=== PATIENT | male | born 1965 | race Caucasian/White ===

== ENCOUNTER 2020-09-30 00:54 | Outpatient (CLI) | payer OTHER, SELFPAY ==
[2020-09-30 19:31] LABS: SARS-CoV-2 RNA PCR Negative
== END 2020-09-30 00:55 | disposition home or self-care (01) ==
LOC: ANHCOVIDDT 00:54
PROVIDERS: Visit Provider Otolaryngology
DX: Z01.818 Encounter for other preprocedural examination (principal); Z20.828 Contact with and (suspected) exposure to other viral communicable diseases
CPT/HCPCS: 87635; C9803; U0003

== ENCOUNTER 2020-10-03 00:01 | Day surgery (SDC) | payer OTHER, SELFPAY ==
[2020-09-25 13:19] VITALS: BMI 25.1
--- NOTE | 2020-10-02 10:02 | WPDANESEPPF ---
Anes - Initial Pre Proc Eval Procedure: Operation Date: 10/03/20 08:45 Proposed Procedures p Right Tympanoplasty - Jas Martinez MD Date/Time: 10/02/20 10:02 Surgeon: Jas Martinez MD Pre Op Diagnosis: Right TM Perforation Patient Data Age: 54 Gender: M Height: 1.78 m Weight: 79.4 kg Allergies Allergy/AdvReac Type Severity Reaction Status Date / Time Sulfa (Sulfonamide Allergy Intermediate hives Verified 09/25/20 13:03 Antibiotics) Home Medications Medication Instructions Recorded Confirmed Type allopurinol 100 mg tablet 100 mg PO BID 04/17/20 09/25/20 History fluticasone propionate 50 2 spray NASAL DAILY 04/17/20 09/25/20 History mcg/actuation nasal spray,suspension lifitegrast [Xiidra] 1 drp OPHTHALMIC (EYE) BID 09/25/20 09/25/20 History Patient hx anesthesia problems: post op nausea/vomiting Family hx anesthesia problems: none PMFSH Past Medical History Medical History (Updated 10/02/20 @ 10:03 by Parish Schneider DO) Gout ZEB (obstructive sleep apnea) uses CPAP Surgical History Surgical History (Updated 10/02/20 @ 10:03 by Parish Schneider DO) History of tonsillectomy Social History Social History Smoking status: Never smoker Living arrangements: with family Spiritual care concerns: No Anes - Eval Final PreProcedure Day of Procedure 10/02/20 10:02 Patient weight: overweight Heart: regular rate and rhythm Lungs: clear to auscultation and normal air movement Airway: Mallampati scale class II Neurological: alert and oriented Last oral intake: >/= 8 hours ASA classification: III Emergent: no Anesthetic plan: proceed Anesthesia type and monitoring: general LMA and standard monitoring Informed Consent: The patient's anesthetic plan and its attendant risks and benefits were discussed with the patient/family/POA. Questions were solicited and answers provided to the satisfaction of the patient/family/POA.
--- NOTE | 2020-10-03 06:00 | PM.HPGS ---
History of Present Illness History of Present Illness Consent: Risks, benefits, and alternatives have been discussed and questions answered. Patient agrees to proceed with procedure. Chief complaint: Right TM Perforation Narrative: Deshaun Patrick II is a 54 year old male With a history of a right tympanic membrane perforation he is being admitted for tympanoplasty right Review of Systems Review of Systems: All systems reviewed & are unremarkable except as noted in HPI and below PMFSH Past Medical History Medical History (Updated 10/02/20 @ 10:03 by Parish cShneider DO) Gout ZEB (obstructive sleep apnea) uses CPAP Surgical History Surgical History (Updated 10/02/20 @ 10:03 by Parish Schneider DO) History of tonsillectomy Social History Social History Smoking status: Never smoker Living arrangements: with family Spiritual care concerns: No Meds Home Medications and Allergies Home Medications Medication Instructions Recorded Confirmed Type allopurinol 100 mg tablet 100 mg PO BID 04/17/20 09/25/20 History fluticasone propionate 50 2 spray NASAL DAILY 04/17/20 09/25/20 History mcg/actuation nasal spray,suspension lifitegrast [Xiidra] 1 drp OPHTHALMIC (EYE) BID 09/25/20 09/25/20 History Allergies Allergy/AdvReac Type Severity Reaction Status Date / Time Sulfa (Sulfonamide Allergy Intermediate hives Verified 09/25/20 13:03 Antibiotics) Assessment and Plan Additional Plan Plan is a right tympanoplasty
--- NOTE | 2020-10-03 06:01 | WPDHPUPDATE1 ---
History and Physical Update Update Date/Time: 10/03/20 06:01 History and Physical has been reviewed, including an updated exam of the patient. There are NO changes in the patient's condition. Risks, benefits, and alternatives have been discussed and questions answered. Patient agrees to proceed with procedure.
[2020-10-03 06:54] VITALS: BP 151/73; PULSE 72; RESP 20; TEMP 36.1; O2SAT 100
[2020-10-03] MEDS: LACTATED RINGERS 1,000 ML 30 ML IV CONT (08:20)
[2020-10-03] MEDS: LIDO 1%/EPINEPHRINE 1:100,000 50 ML VIAL INFILTRATE (08:42)
[2020-10-03] MEDS: CIPROFLOXACIN HCL 0.3% OP SOLN 2.5 ML BTL 4 DROP EACH EAR (08:43)
[2020-10-03] MEDS: NEOMYCIN/POLYMYXIN B/PRAMOXINE 15 GM CREAM 1 APPLIC TOPICAL (08:48)
--- NOTE | 2020-10-03 09:16 | P.OP_ITS ---
Procedure Note - Detailed Date of procedure: 10/03/20 Pre-op diagnosis: Right TM Perforation Post-op diagnosis: same Procedure performed: Right fat graft tympanoplasty Description of procedure: Patient was prepped and draped in usual fashion g eneral anesthesia the right ear was inspected the vascular strip was injected xylocaine with adrenaline the postauricular region was injected with 1% xylocaine 1 to [id number] epinephrine a small incision was made fat graft harvested closed with 4 0 chromic the graft was then placed in a dumbbell fashion a small perforation anterosuperiorly ointment placed over the graft patient awakened returned to recovery in good condition Anesthesia: GLMA Surgeon: Jas Martinez MD Estimated blood loss (mL): 0 Drains: No Packing: No Pathology: none sent Complications: No immediate complications Condition: stable Disposition: PACU Findings: Small right tympanic membrane perforation
[2020-10-03 09:21] VITALS: BP 130/72; PULSE 71; RESP 13; TEMP 36.2; O2SAT 98
[2020-10-03 09:35] VITALS: BP 120/81; PULSE 70; RESP 12; O2SAT 100
--- NOTE | 2020-10-03 09:48 | SUR.PHASEI ---
PT AWAKE AND ALERT. DENIES PAIN OR NAUSEA. TALKATIVE.
[2020-10-03 09:50] VITALS: BP 142/84; PULSE 74; RESP 14; O2SAT 99
[2020-10-03 10:06] VITALS: BP 139/74; PULSE 65; RESP 16
[2020-10-03 10:28] VITALS: BP 136/75; PULSE 63; RESP 16
== END 2020-10-03 10:54 | disposition home or self-care (01) ==
PROVIDERS: Visit Provider Otolaryngology
PROC: (CPT 69620; principal; 2020-10-03 08:45)
DX: H72.91 Unspecified perforation of tympanic membrane, right ear (principal); M10.9 Gout, unspecified; G47.33 Obstructive sleep apnea (adult) (pediatric)
CPT/HCPCS: 69620; A9270; J0171; J1100; J1200; J2250; J2405; J2704; J3010; J7120